=== PATIENT | male | born 1950 | race Caucasian/White ===

== ENCOUNTER 2021-09-24 09:15 | Emergency (ER) | payer OTHER ==
[~2021-09-24] VITALS: Wt 92.6 kg
[~2021-09-24 09:15] MED LIST: ACETAMINOPHEN325 M2 PEG; ATROPINE SULFATE2 M2 SL; BISACODYL10 MG R; BUDESONIDE0.5 MG/2 M INH; CEFTRIAXONE1 GM IV; FERROUS SU300 MG/5 M PO; FLEET ENEMA EX230 M1 R; FLUCONAZOLE200 MG PO; GLYCOPYRROLATE1 MG PEG; HUMALOG100 UNIT/2 SC; Ipratropium Brom3 ML INH; KEPPRA100 MG/1 M PEG; LANTUS SOL100 UNIT/1 SC; LASIX40 MG PO; LEVETIRACE500 MG/5 M PEG; LEVOFLOXACIN500 MG PEG; MILK OF MA400 MG/5 M PEG; PAROEX473 ML PO; PROTONIX40 M2 PEG; SENNA-PLUS TAB1 EACH PO; TRANSDERM-SCOP1 EAC1 TD; VENTOLIN 02.5 MG/3 M INH; XARELTO10 MG PEG
[2021-09-24 09:48] LABS: BASO # 0.1 10*3/uL (0.0-0.1); BASO % 0.7 % (0.0-1.0); EOS # 0.7 10*3/uL (0.0-0.4); EOS % 5.9 % (1.0-4.0); HEMATOCRIT 31.3 % (42.0-52.0); LYMPH % 9.4 % (27.0-41.0); MEAN CELL VOLUME 96.3 fl (80.0-94.0); MEAN CORPUSCULAR HGB 30.8 pg (27.0-31.0); MEAN CORPUSCULAR HGB CONC 31.9 g/dl (33.0-37.0); MEAN PLATELET VOLUME 9.1 fl (9.6-12.3); MONO # 0.7 10*3/uL (0.1-1.0); MONO % 6.3 % (3.0-9.0); NEUT # 8.5 10*3/uL (2.3-7.9); NEUT % 77.3 % (47.0-73.0); PLATELET COUNT AUTOMATED 257 10*3/uL (130-400); RED BLOOD COUNT 3.25 10*6/uL (4.50-5.90); RED CELL DISTRI WIDTH 17.2 % (0-14.5); WHITE BLOOD COUNT 11.1 10*3/uL (4.8-10.8)
[2021-09-24 09:59] LABS: ACT PARTIAL THROMBO TIME 29.4 SECONDS (20.0-32.1); INTERNATIONAL NORM RATIO 1.1 (2.0-3.5)
[2021-09-24 10:10] LABS: ALKALINE PHOSPHATASE 71 U/L (45-117); BUN 21 mg/dl (7-24); CREATININE 0.44 mg/dL (0.70-1.30); SGOT/AST 13 IU/L (3-35); SGPT/ALT 13 U/L (12-78); TOTAL PROTEIN 6.6 gm/dL (6.4-8.2)
[2021-09-24 10:33] LABS: CHLORIDE 97 mmol/L (98-107); SODIUM 136 mmol/L (136-145)
[2021-09-24 10:38] LABS: BILIRUBIN Negative (Negative); BLOOD 2+ (Negative); CLARITY Cloudy (Clear); COLOR Yellow (Yellow); GLUCOSE Negative (Negative); KETONE Negative (Negative); LEUKO ESTERASE 1+ (Negative); NITRITE Negative (Negative)
[2021-09-24 11:35] LABS: BACTERIA 3+; RBC TNTC rbc/hpf (0-2)
[2021-09-24 11:36] LABS: COARSE GRANULAR CAST 21-30
== END 2021-09-24 13:54 ==
LOC: ED 09:15
PROVIDERS: Emergency Medicine
DX: R00.1 Bradycardia, unspecified (principal); R56.9 Unspecified convulsions; J44.9 Chronic obstructive pulmonary disease, unspecified; I10 Essential (primary) hypertension; K21.9 Gastro-esophageal reflux disease without esophagitis; E11.9 Type 2 diabetes mellitus without complications; Z79.899 Other long term (current) drug therapy; Z98.890 Other specified postprocedural states

== ENCOUNTER 2021-09-25 21:16 | Inpatient (IN) | payer OTHER ==
[~2021-09-25] VITALS: Ht 182.9 cm; Wt 91.9 kg
[2021-09-25 21:19] VITALS: BP 112/68
[2021-09-25 21:52] LABS: ALKALINE PHOSPHATASE 71 U/L (45-117); BUN 23 mg/dl (7-24); CHLORIDE 100 mmol/L (98-107); CREATININE 0.44 mg/dL (0.70-1.30); LIPASE 55 U/L (73-393); POTASSIUM 3.8 mmol/L (3.5-5.1); SGOT/AST 13 IU/L (3-35); SGPT/ALT 16 U/L (12-78); SODIUM 139 mmol/L (136-145); TOTAL PROTEIN 6.5 gm/dL (6.4-8.2)
[2021-09-25 22:34] LABS: BILIRUBIN Negative (Negative); BLOOD 1+ (Negative); CLARITY Cloudy (Clear); COLOR Dark Yellow (Yellow); GLUCOSE Negative (Negative); KETONE Negative (Negative); LEUKO ESTERASE 2+ (Negative); NITRITE Negative (Negative); SPECIFIC GRAVITY 1.025 (1.001-1.030)
[2021-09-25 22:37] LABS: BASO # 0.1 10*3/uL (0.0-0.1); BASO % 0.6 % (0.0-1.0); EOS # 0.5 10*3/uL (0.0-0.4); EOS % 4.9 % (1.0-4.0); HEMATOCRIT 30.2 % (42.0-52.0); LYMPH # 1.2 10*3/uL (1.3-4.4); LYMPH % 10.9 % (27.0-41.0); MEAN CELL VOLUME 98.7 fl (80.0-94.0); MEAN CORPUSCULAR HGB 31.4 pg (27.0-31.0); MEAN CORPUSCULAR HGB CONC 31.8 g/dl (33.0-37.0); MEAN PLATELET VOLUME 9.4 fl (9.6-12.3); MONO # 0.9 10*3/uL (0.1-1.0); NEUT # 8.3 10*3/uL (2.3-7.9); NEUT % 75.2 % (47.0-73.0); PLATELET COUNT AUTOMATED 256 10*3/uL (130-400); RED BLOOD COUNT 3.06 10*6/uL (4.50-5.90); RED CELL DISTRI WIDTH 17.2 % (0-14.5); WHITE BLOOD COUNT 11.1 10*3/uL (4.8-10.8)
[2021-09-25 22:59] LABS: RBC 31-40 rbc/hpf (0-2); WBC 21-30 wbc/hpf (0-5); YEAST TRACE
[2021-09-25 23:03] LABS: CALCIUM OXALATE CRYSTALS 3+
[2021-09-26] VITALS (7 sets, daily range): BP systolic 97–180; BP diastolic 46–98
[2021-09-26 03:59] LABS: BASO % 0.4 % (0.0-1.0); EOS # 0.8 10*3/uL (0.0-0.4); EOS % 7.7 % (1.0-4.0); HEMATOCRIT 28.1 % (42.0-52.0); LYMPH # 1.6 10*3/uL (1.3-4.4); LYMPH % 15.4 % (27.0-41.0); MEAN CORPUSCULAR HGB 30.3 pg (27.0-31.0); MEAN CORPUSCULAR HGB CONC 31.7 g/dl (33.0-37.0); MEAN PLATELET VOLUME 9.3 fl (9.6-12.3); MONO # 0.7 10*3/uL (0.1-1.0); MONO % 7.1 % (3.0-9.0); NEUT % 69.1 % (47.0-73.0); PLATELET COUNT AUTOMATED 240 10*3/uL (130-400); RED BLOOD COUNT 2.94 10*6/uL (4.50-5.90); RED CELL DISTRI WIDTH 17.1 % (0-14.5); WHITE BLOOD COUNT 10.1 10*3/uL (4.8-10.8)
[2021-09-26 04:05] LABS: MEAN CELL VOLUME 95.6 fl (80.0-94.0)
[2021-09-27] VITALS (7 sets, daily range): BP systolic 98–135; BP diastolic 50–73
[2021-09-27 05:10] LABS: BUN 15 mg/dl (7-24); CHLORIDE 103 mmol/L (98-107); CREATININE 0.48 mg/dL (0.70-1.30); POTASSIUM 3.5 mmol/L (3.5-5.1); SGOT/AST 10 IU/L (3-35); SGPT/ALT 14 U/L (12-78); SODIUM 141 mmol/L (136-145)
[2021-09-27 05:11] LABS: ALKALINE PHOSPHATASE 56 U/L (45-117)
[2021-09-27 05:20] LABS: THYROID STIM HORMONE (HS) 0.798 uIU/ml (0.358-4.75)
[2021-09-27 06:31] LABS: BASO # 0.1 10*3/uL (0.0-0.1); BASO % 0.7 % (0.0-1.0); EOS # 0.6 10*3/uL (0.0-0.4); EOS % 6.7 % (1.0-4.0); HEMATOCRIT 28.7 % (42.0-52.0); LYMPH # 1.6 10*3/uL (1.3-4.4); LYMPH % 17.3 % (27.0-41.0); MEAN CELL VOLUME 98.3 fl (80.0-94.0); MEAN CORPUSCULAR HGB 31.2 pg (27.0-31.0); MEAN CORPUSCULAR HGB CONC 31.7 g/dl (33.0-37.0); MEAN PLATELET VOLUME 10.1 fl (9.6-12.3); MONO # 0.7 10*3/uL (0.1-1.0); MONO % 7.4 % (3.0-9.0); NEUT # 6.1 10*3/uL (2.3-7.9); NEUT % 67.6 % (47.0-73.0); PLATELET COUNT AUTOMATED 231 10*3/uL (130-400); RED BLOOD COUNT 2.92 10*6/uL (4.50-5.90); RED CELL DISTRI WIDTH 17.2 % (0-14.5); WHITE BLOOD COUNT 9.1 10*3/uL (4.8-10.8)
[2021-09-28] VITALS: BP 146/68
[2021-09-28 04:00] VITALS: BP 137/59
[2021-09-28 08:00] VITALS: BP 104/44
[2021-09-28] MEDS ORDERED: METAMUCIL PACK3.4 GM PO (09:20)
[2021-09-28] MEDS ORDERED: VIBRAMYCIN HYC100 MG PO (09:20)
[2021-09-28 12:00] VITALS: BP 124/53
[2021-09-28 16:00] VITALS: BP 115/50
[2021-09-28 20:00] VITALS: BP 133/71
[2021-09-29] VITALS: BP 107/45
[2021-09-29 04:00] VITALS: BP 91/52
[2021-09-29 04:54] LABS: BASO % 0.6 % (0.0-1.0); EOS # 0.8 10*3/uL (0.0-0.4); EOS % 11.5 % (1.0-4.0); HEMATOCRIT 28.4 % (42.0-52.0); LYMPH # 1.3 10*3/uL (1.3-4.4); LYMPH % 18.7 % (27.0-41.0); MEAN CELL VOLUME 95.3 fl (80.0-94.0); MEAN CORPUSCULAR HGB 30.5 pg (27.0-31.0); MEAN PLATELET VOLUME 9.3 fl (9.6-12.3); MONO # 0.6 10*3/uL (0.1-1.0); MONO % 7.9 % (3.0-9.0); NEUT # 4.3 10*3/uL (2.3-7.9); NEUT % 60.9 % (47.0-73.0); PLATELET COUNT AUTOMATED 214 10*3/uL (130-400); RED BLOOD COUNT 2.98 10*6/uL (4.50-5.90); RED CELL DISTRI WIDTH 16.7 % (0-14.5); WHITE BLOOD COUNT 7.1 10*3/uL (4.8-10.8)
[2021-09-29 05:16] LABS: ALKALINE PHOSPHATASE 54 U/L (45-117); BUN 7 mg/dl (7-24); CHLORIDE 106 mmol/L (98-107); CREATININE 0.42 mg/dL (0.70-1.30); SGOT/AST 13 IU/L (3-35); SGPT/ALT 13 U/L (12-78); SODIUM 140 mmol/L (136-145); TOTAL PROTEIN 5.6 gm/dL (6.4-8.2)
[2021-09-29 08:00] VITALS: BP 95/44
[2021-09-29 12:00] VITALS: BP 86/47
[2021-09-29 16:00] VITALS: BP 94/50
[2021-09-29 20:00] VITALS: BP 119/64
[2021-09-30] VITALS: BP 122/55
[2021-09-30 04:00] VITALS: BP 119/65
[2021-09-30 08:00] VITALS: BP 113/58
[2021-09-30 12:00] VITALS: BP 101/62
[2021-09-30 16:00] VITALS: BP 142/50
[2021-09-30 20:00] VITALS: BP 152/53
[2021-10-01] VITALS: BP 148/49
[2021-10-01 04:00] VITALS: BP 148/53
[2021-10-01 04:41] LABS: BASO % 0.5 % (0.0-1.0); EOS # 0.7 10*3/uL (0.0-0.4); EOS % 8.5 % (1.0-4.0); HEMATOCRIT 31.5 % (42.0-52.0); LYMPH # 1.2 10*3/uL (1.3-4.4); MEAN CELL VOLUME 94.3 fl (80.0-94.0); MEAN CORPUSCULAR HGB 30.2 pg (27.0-31.0); MEAN CORPUSCULAR HGB CONC 32.1 g/dl (33.0-37.0); MEAN PLATELET VOLUME 9.4 fl (9.6-12.3); MONO # 0.5 10*3/uL (0.1-1.0); MONO % 6.5 % (3.0-9.0); NEUT # 5.4 10*3/uL (2.3-7.9); NEUT % 69.1 % (47.0-73.0); PLATELET COUNT AUTOMATED 208 10*3/uL (130-400); RED BLOOD COUNT 3.34 10*6/uL (4.50-5.90); RED CELL DISTRI WIDTH 16.2 % (0-14.5); WHITE BLOOD COUNT 7.8 10*3/uL (4.8-10.8)
[2021-10-01 04:57] LABS: BUN 7 mg/dl (7-24); CHLORIDE 104 mmol/L (98-107); CREATININE 0.41 mg/dL (0.70-1.30); POTASSIUM 3.3 mmol/L (3.5-5.1); SODIUM 138 mmol/L (136-145)
[2021-10-01 08:00] VITALS: BP 128/57
[2021-10-01 12:00] VITALS: BP 149/56
== END 2021-10-01 15:53 | DRG 389 ==
LOC: ED 21:16 → EDHOLD 09-26 03:59 → ICCU 09-26 03:59 → EDHOLD 09-26 04:04 → ICCU 09-26 23:37
PROVIDERS: Emergency Medicine; Internal Medicine; Student in an Organized Health Care Education/Training Program; ADMIT Internal Medicine; ATTEND Internal Medicine
PROC: 5A1955Z Respiratory Ventilation, Greater than 96 Consecutive Hours (ICD-10-PCS; principal; 2021-09-26)
PROC: 0HBRXZZ Excision of Toe Nail, External Approach (ICD-10-PCS; 2021-09-26)
PROC: 0HBRXZZ Excision of Toe Nail, External Approach (ICD-10-PCS; 2021-09-26)
PROC: 0HBRXZZ Excision of Toe Nail, External Approach (ICD-10-PCS; 2021-09-26)
PROC: 0HBRXZZ Excision of Toe Nail, External Approach (ICD-10-PCS; 2021-09-26)
PROC: 0HBRXZZ Excision of Toe Nail, External Approach (ICD-10-PCS; 2021-09-26)
PROC: 0HBRXZZ Excision of Toe Nail, External Approach (ICD-10-PCS; 2021-09-26)
PROC: 0HBRXZZ Excision of Toe Nail, External Approach (ICD-10-PCS; 2021-09-26)
PROC: 0HBRXZZ Excision of Toe Nail, External Approach (ICD-10-PCS; 2021-09-26)
PROC: 0HBRXZZ Excision of Toe Nail, External Approach (ICD-10-PCS; 2021-09-26)
PROC: 0HBRXZZ Excision of Toe Nail, External Approach (ICD-10-PCS; 2021-09-26)
DX: K56.7 Ileus, unspecified (principal); N39.0 Urinary tract infection, site not specified; E44.0 Moderate protein-calorie malnutrition; J96.11 Chronic respiratory failure with hypoxia; G93.1 Anoxic brain damage, not elsewhere classified; J98.11 Atelectasis; Z99.11 Dependence on respirator [ventilator] status; K59.00 Constipation, unspecified; K59.81 Ogilvie syndrome; K31.9 Disease of stomach and duodenum, unspecified; N32.81 Overactive bladder; D53.9 Nutritional anemia, unspecified; E87.8 Other disorders of electrolyte and fluid balance, not elsewhere classified; E11.65 Type 2 diabetes mellitus with hyperglycemia; I10 Essential (primary) hypertension; J44.9 Chronic obstructive pulmonary disease, unspecified; K21.9 Gastro-esophageal reflux disease without esophagitis; B35.1 Tinea unguium; E11.42 Type 2 diabetes mellitus with diabetic polyneuropathy; Z79.51 Long term (current) use of inhaled steroids; Z79.1 Long term (current) use of non-steroidal anti-inflammatories (NSAID); Z79.899 Other long term (current) drug therapy; Z79.4 Long term (current) use of insulin; Z93.0 Tracheostomy status; Z68.27 Body mass index [BMI] 27.0-27.9, adult

== ENCOUNTER 2021-10-04 13:19 | Inpatient (IN) | payer OTHER ==
[~2021-10-04] VITALS: Ht 175.2 cm; Wt 125.4 kg
[~2021-10-04 13:19] MED LIST changes: +METAMUCIL PACK3.4 GM PO; +VIBRAMYCIN HYC100 MG PO
[2021-10-04 13:50] VITALS: BP 100/60
[2021-10-04 15:02] LABS: ALKALINE PHOSPHATASE 61 U/L (45-117); BUN 26 mg/dl (7-24); CHLORIDE 100 mmol/L (98-107); CREATININE 0.67 mg/dL (0.70-1.30); LIPASE 59 U/L (73-393); POTASSIUM 4.5 mmol/L (3.5-5.1); SGOT/AST 17 IU/L (3-35); SGPT/ALT 14 U/L (12-78); SODIUM 134 mmol/L (136-145); TOTAL PROTEIN 6.2 gm/dL (6.4-8.2)
[2021-10-04 15:18] VITALS: BP 88/55
[2021-10-04 15:22] LABS: BASO # 0.1 10*3/uL (0.0-0.1); BASO % 0.5 % (0.0-1.0); EOS # 0.4 10*3/uL (0.0-0.4); EOS % 3.8 % (1.0-4.0); HEMATOCRIT 29.8 % (42.0-52.0); LYMPH # 1.1 10*3/uL (1.3-4.4); LYMPH % 10.4 % (27.0-41.0); MEAN CELL VOLUME 97.1 fl (80.0-94.0); MEAN CORPUSCULAR HGB 30.9 pg (27.0-31.0); MEAN CORPUSCULAR HGB CONC 31.9 g/dl (33.0-37.0); MEAN PLATELET VOLUME 9.7 fl (9.6-12.3); MONO % 8.8 % (3.0-9.0); NEUT # 8.3 10*3/uL (2.3-7.9); NEUT % 75.9 % (47.0-73.0); PLATELET COUNT AUTOMATED 229 10*3/uL (130-400); RED BLOOD COUNT 3.07 10*6/uL (4.50-5.90); RED CELL DISTRI WIDTH 15.7 % (0-14.5); WHITE BLOOD COUNT 10.9 10*3/uL (4.8-10.8)
[2021-10-04 16:57] LABS: BILIRUBIN 1+ (Negative); BLOOD 3+ (Negative); CLARITY Turbid (Clear); COLOR Dark Yellow (Yellow); GLUCOSE Negative (Negative); KETONE Negative (Negative); LEUKO ESTERASE 2+ (Negative); NITRITE Negative (Negative)
[2021-10-04 17:20] LABS: BACTERIA 2+; RBC 21-30 rbc/hpf (0-2); WBC 16-20 wbc/hpf (0-5)
[2021-10-04 19:16] VITALS: BP 103/59
[2021-10-04 21:17] VITALS: BP 102/59
[2021-10-04 22:59] VITALS: BP 100/57
[2021-10-05 00:42] VITALS: BP 112/67
[2021-10-05 01:08] VITALS: BP 140/78
[2021-10-05 04:00] VITALS: BP 119/69
[2021-10-05 05:47] LABS: ALKALINE PHOSPHATASE 54 U/L (45-117); BUN 28 mg/dl (7-24); CHLORIDE 99 mmol/L (98-107); CREATININE 0.64 mg/dL (0.70-1.30); POTASSIUM 3.7 mmol/L (3.5-5.1); SGOT/AST 12 IU/L (3-35); SGPT/ALT 15 U/L (12-78); SODIUM 137 mmol/L (136-145); TOTAL PROTEIN 5.9 gm/dL (6.4-8.2)
[2021-10-05 06:03] LABS: BASO # 0.1 10*3/uL (0.0-0.1); BASO % 0.5 % (0.0-1.0); EOS # 0.5 10*3/uL (0.0-0.4); EOS % 5.8 % (1.0-4.0); HEMATOCRIT 28.4 % (42.0-52.0); LYMPH # 1.6 10*3/uL (1.3-4.4); LYMPH % 17.6 % (27.0-41.0); MEAN CELL VOLUME 95.9 fl (80.0-94.0); MEAN CORPUSCULAR HGB 30.7 pg (27.0-31.0); MEAN PLATELET VOLUME 9.9 fl (9.6-12.3); MONO # 0.7 10*3/uL (0.1-1.0); MONO % 7.9 % (3.0-9.0); NEUT # 6.2 10*3/uL (2.3-7.9); NEUT % 67.8 % (47.0-73.0); PLATELET COUNT AUTOMATED 233 10*3/uL (130-400); RED BLOOD COUNT 2.96 10*6/uL (4.50-5.90); RED CELL DISTRI WIDTH 15.6 % (0-14.5); WHITE BLOOD COUNT 9.1 10*3/uL (4.8-10.8)
[2021-10-05 08:00] VITALS: BP 106/55
[2021-10-05 12:00] VITALS: BP 119/50
== END 2021-10-05 15:53 | disposition hospice, inpatient (51) | DRG 698 ==
LOC: ED 13:19 → EDHOLD 18:51 → ICCU 18:51
PROVIDERS: Emergency Medicine; Internal Medicine; Student in an Organized Health Care Education/Training Program; ADMIT Student in an Organized Health Care Education/Training Program; ATTEND Student in an Organized Health Care Education/Training Program
PROC: 5A1935Z Respiratory Ventilation, Less than 24 Consecutive Hours (ICD-10-PCS; principal; 2021-10-04)
DX: T83.511A Infection and inflammatory reaction due to indwelling urethral catheter, initial encounter (principal); E43 Unspecified severe protein-calorie malnutrition; J18.9 Pneumonia, unspecified organism; J96.11 Chronic respiratory failure with hypoxia; G93.1 Anoxic brain damage, not elsewhere classified; Z99.11 Dependence on respirator [ventilator] status; J98.11 Atelectasis; K56.7 Ileus, unspecified; Z68.41 Body mass index [BMI] 40.0-44.9, adult; N39.0 Urinary tract infection, site not specified; N31.9 Neuromuscular dysfunction of bladder, unspecified; Z66 Do not resuscitate; Z51.5 Encounter for palliative care; R62.7 Adult failure to thrive; Y83.8 Other surgical procedures as the cause of abnormal reaction of the patient, or of later complication, without mention of misadventure at the time of the procedure; D53.9 Nutritional anemia, unspecified; K59.81 Ogilvie syndrome; E11.65 Type 2 diabetes mellitus with hyperglycemia; I10 Essential (primary) hypertension; J44.9 Chronic obstructive pulmonary disease, unspecified; K21.9 Gastro-esophageal reflux disease without esophagitis; Y92.89 Other specified places as the place of occurrence of the external cause; Z93.0 Tracheostomy status; Z79.1 Long term (current) use of non-steroidal anti-inflammatories (NSAID); Z79.51 Long term (current) use of inhaled steroids

== ENCOUNTER 2021-10-05 16:09 | Inpatient (IN) | payer OTHER ==
[~2021-10-05] VITALS: Ht 175.2 cm; Wt 125.2 kg
[2021-10-05 16:15] VITALS: BP 103/54
[2021-10-05 20:00] VITALS: BP 97/47
[2021-10-06] VITALS: BP 91/55
[2021-10-06 08:00] VITALS: BP 110/74
[2021-10-06 12:00] VITALS: BP 133/70
[2021-10-06 16:00] VITALS: BP 103/56
[2021-10-06 20:00] VITALS: BP 118/60
[2021-10-07] VITALS: BP 113/61
[2021-10-07 08:00] VITALS: BP 126/62
[2021-10-07 12:00] VITALS: BP 128/64
[2021-10-07 16:00] VITALS: BP 129/56
== END 2021-10-07 19:31 | DRG 392 ==
LOC: ICCU 16:09 → 5E 10-06 14:21
PROVIDERS: ADMIT Student in an Organized Health Care Education/Training Program; ATTEND Student in an Organized Health Care Education/Training Program
DX: R10.9 Unspecified abdominal pain (principal); Z66 Do not resuscitate; J96.11 Chronic respiratory failure with hypoxia; Z99.11 Dependence on respirator [ventilator] status; Z51.5 Encounter for palliative care